=== PATIENT | male | born 1940 | race Caucasian/White ===

== ENCOUNTER 2019-04-27 16:32 | Inpatient (IN) | payer MEDICAID, MEDICARE, OTHER ==
[~2019-04-27] VITALS: Ht 177.8 cm; Wt 68.8 kg
[2019-04-27] MEDS ORDERED: nitroGLYCERIN-Tridil 50MG/D5W 250 ML IV ONE (17:00)
[2019-04-27] MEDS ORDERED: enalaprilat dihydrate 2.5mg/2ml vial IV ONE (17:00)
[2019-04-27 17:15] LABS: BASOPHILS % (AUTO) 0.6 % (0-1); EOSINOPHILS % (AUTO) 0.1 % (0-6); HEMATOCRIT 40.6 % (42.0-52.0); HEMOGLOBIN 13.4 g/dl (14.0-17.9); LYMPHOCYTES % (AUTO) 14.1 % (21-51); MEAN CORPUSCULAR HEMOGLOBIN 28.1 PG (27.0-31.0); MEAN CORPUSCULAR HGB CONC 33.1 g/dL (33.0-36.5); MEAN CORPUSCULAR VOLUME 85.1 FL (78-98); MEAN PLATELET VOLUME 7.9 FL (7.4-10.4); MONOCYTES # (AUTO) 0.5 X10'3 (0-0.9); MONOCYTES % (AUTO) 6.6 % (2-12); NEUTROPHILS # (AUTO) 5.6 X10'3 (1.8-7.7); NEUTROPHILS % (AUTO) 78.6 % (42-75); PLATELET COUNT 201 X10'3 (140-440); RED BLOOD COUNT 4.77 X10'6 (4.70-6.10); RED CELL DISTRIBUTION WIDTH 16.2 % (11.5-14.5); WHITE BLOOD COUNT 7.2 X10'3 (4.5-11.0)
[2019-04-27 17:40] LABS: D-DIMER 0.65 MG/L FEU (0-0.50); PARTIAL THROMBOPLASTIN TIME 27 SECONDS (22-32)
[2019-04-27 17:41] LABS: ALANINE AMINOTRANSFERASE 19 U/L (12-78); ALBUMIN 3.4 G/DL (3.4-5.0); ALBUMIN/GLOBULIN RATIO 1.1 (1.1-1.5); ALKALINE PHOSPHATASE 78 IU/L (46-116); ANION GAP 3 (8-16); ASPARTATE AMINO TRANSFERASE 19 U/L (10-37); BILIRUBIN,TOTAL 0.6 MG/DL (0.1-1.0); BLOOD UREA NITROGEN 14 MG/DL (7-18); BUN/CREATININE RATIO 14.1 (5.4-32.0); CALCIUM 8.3 MG/DL (8.5-10.1); CHLORIDE 106 MMOL/L (99-107); CREATININE 0.99 MG/DL (0.60-1.10); GLUCOSE 201 MG/DL (70-104); POTASSIUM 4.5 MMOL/L (3.5-5.1); SODIUM 144 MMOL/L (135-145); TOTAL CARBON DIOXIDE 35.4 MMOL/L (24-32); TOTAL PROTEIN 6.5 G/DL (6.4-8.2); eGFR 73 ML/MIN
[2019-04-27 18:41] LABS: ABG HCO3 27.3 mmol/L (22.0-26.0); ABG OXYGEN SATURATION 89.7 % (95-98); ABG PCO2 (T) 54.9 mmHg (35.0-45.0); ABG PH (T) 7.311 (7.350-7.450); ABG PO2 (T) 55.4 mmHg (83-108); ALLEN'S TEST POSITIVE; FCOHb 1.1 % (0.5-1.5); FMetHb 0.1 % (0.3-1.12); FO2Hb 88.6 % (94-100); PATIENT TEMPERATURE 36.4; RESPIRATORY RATE 18 b/min; TOTAL HEMOGLOBIN 13.1 G/dl (14.0-17.9)
[2019-04-27 19:00] VITALS: BP 112/92
[2019-04-27] MEDS ORDERED: magnesium 2GM in 50ml NS 50 ML IV PRN (19:40)
[2019-04-27] MEDS ORDERED: magnesium Cl slow-release 64mg tablet PO PRN (19:40)
[2019-04-27] MEDS ORDERED: ondansetron/PF 4mg/2ml inj IV PRN (19:40)
[2019-04-27] MEDS ORDERED: potassium CL 10mEq/100ml bag 100 ML IV PRN ×2 (19:40)
[2019-04-27] MEDS ORDERED: potassium Cl 20 mEq SR tablet PO PRN ×2 (19:40)
[2019-04-27] MEDS ORDERED: magnesium 4gm in 100ml NS 100 ML IV PRN (19:40)
[2019-04-27 20:00] VITALS: BP 112/97
[2019-04-27] MEDS: K and/or MAG REPLACEMENT MC SCH (20:00)
--- NOTE | 2019-04-27 21:00 | NUR ---
[facility], placed on mobile, placed on bipap. Vitals stable, mrsa swab done, 2 RN skin check, and DART complete,.
[2019-04-27 22:00] VITALS: BP 113/65
--- NOTE | 2019-04-27 22:25 | NUR ---
Sent to [facility] PAGER ID: [phone] MESSAGE: ROOM 3012C Vinny Lim: 0 hr trop 0.04 3 hr trop 0.13 elevated D-DIMER 0.65 Please advise Danuta [phone]
[2019-04-27] MEDS: ipratropium/albuterol 3ml nebule NEB SCH (22:47)
[2019-04-27 23:00] VITALS: BP 112/69
--- NOTE | 2019-04-27 23:05 | NUR ---
SENT TO [facility] PAGER ID: [phone] MESSAGE: ROOM 3012C HERB CASTRO: 0 HR 0.04 3 HR 0.18 6 HR 0.24 EKG normal sinus rhythm Please advise Danuta [phone]
[2019-04-28] VITALS (7 sets, daily range): BP systolic 103–134; BP diastolic 50–87
[2019-04-28] MEDS ORDERED: CHOL400T14 PO (02:30)
[2019-04-28] MEDS ORDERED: ASPI81TA52 PO (02:30)
[2019-04-28] MEDS ORDERED: LOSA25TA96 PO (02:30)
[2019-04-28] MEDS ORDERED: BUDE0.5A11 IH (02:30)
[2019-04-28] MEDS ORDERED: OSC500T PO (02:30)
[2019-04-28] MEDS ORDERED: DOCU-148 PO (02:30)
[2019-04-28] MEDS ORDERED: TIOT18CA3 INH (02:30)
[2019-04-28] MEDS ORDERED: SIMV-42 PO (02:30)
[2019-04-28] MEDS ORDERED: CALC500T11 PO (02:30)
[2019-04-28] MEDS ORDERED: ALEN70TA60 PO ×2 (02:30→02:41)
[2019-04-28] MEDS: ipratropium/albuterol 3ml nebule NEB SCH ×5 (02:33→20:11)
[2019-04-28] MEDS ORDERED: SIMV10TA2 PO (02:41)
[2019-04-28 05:08] LABS: BASOPHILS % (AUTO) 0.2 % (0-1); EOSINOPHILS % (AUTO) 0.1 % (0-6); HEMATOCRIT 36.2 % (42.0-52.0); HEMOGLOBIN 12.1 g/dl (14.0-17.9); LYMPHOCYTES # (AUTO) 0.4 X10'3 (1.1-4.8); LYMPHOCYTES % (AUTO) 9.9 % (21-51); MEAN CORPUSCULAR HEMOGLOBIN 27.8 PG (27.0-31.0); MEAN CORPUSCULAR HGB CONC 33.3 g/dL (33.0-36.5); MEAN CORPUSCULAR VOLUME 83.4 FL (78-98); MEAN PLATELET VOLUME 8.4 FL (7.4-10.4); MONOCYTES # (AUTO) 0.4 X10'3 (0-0.9); MONOCYTES % (AUTO) 10.2 % (2-12); NEUTROPHILS # (AUTO) 3.3 X10'3 (1.8-7.7); NEUTROPHILS % (AUTO) 79.6 % (42-75); PLATELET COUNT 162 X10'3 (140-440); RED BLOOD COUNT 4.34 X10'6 (4.70-6.10); RED CELL DISTRIBUTION WIDTH 15.8 % (11.5-14.5); WHITE BLOOD COUNT 4.1 X10'3 (4.5-11.0)
[2019-04-28 05:13] LABS: ANION GAP 0 (8-16); BLOOD UREA NITROGEN 14 MG/DL (7-18); BUN/CREATININE RATIO 16.7 (5.4-32.0); CALCIUM 8.3 MG/DL (8.5-10.1); CHLORIDE 108 MMOL/L (99-107); CREATININE 0.84 MG/DL (0.60-1.10); GLUCOSE 114 MG/DL (70-104); MAGNESIUM 2.1 MG/DL (1.5-2.4); POTASSIUM 4.5 MMOL/L (3.5-5.1); SODIUM 144 MMOL/L (135-145); TOTAL CARBON DIOXIDE 35.8 MMOL/L (24-32); eGFR 88 ML/MIN
--- NOTE | 2019-04-28 05:35 | NUR ---
Vince is aware of all of patient's troponins, no further orders have been made at this time.
--- NOTE | 2019-04-28 06:21 | NUR ---
Patient in room PCU 3012. I have received report from RICK Pena and had the opportunity to ask questions and assume patient care.
[2019-04-28] MEDS: K and/or MAG REPLACEMENT MC SCH ×2 (08:00→19:46)
[2019-04-28] MEDS: CefTRIAXone/D5W-Rocephin 1gm 50 ML IV SCH (08:31)
[2019-04-28] MEDS: methylPREDNISolone sod succ 125mg/2ml vial IV SCH ×2 (08:32→08:44)
[2019-04-28] MEDS: pantoprazole 40mg Tablet.DR PO SCH ×2 (08:33→08:45)
[2019-04-28] MEDS: furosemide 20 MG/2 ML vial IV SCH ×2 (08:33→08:42)
[2019-04-28] MEDS: heparin, porcine 5000 units/ml vial SQ SCH ×2 (08:33→08:44)
[2019-04-28] MEDS: azithromycin/NS 500mg/250ml 250 ML IV SCH (11:26)
[2019-04-28] MEDS ORDERED: non-formulary drug (Alendronate Sodium* (Fosamax*) 70 MG) PO SCH (11:55)
--- NOTE | 2019-04-28 18:36 | NUR ---
Problems reprioritized. Patient report given, questions answered & plan of care reviewed with RICK Najera.
[2019-04-28] MEDS: losartan 25mg tablet PO SCH (20:48)
[2019-04-28] MEDS: aspirin 81mg tablet.DR PO SCH (20:49)
[2019-04-28] MEDS: calcium carbonate 500mg tablet PO SCH (20:49)
--- NOTE | 2019-04-28 23:08 | NUR ---
patient requested to leave fieldstart in. patient is aware of the risks for leaving it in
[2019-04-29] MEDS: ipratropium/albuterol 3ml nebule NEB SCH ×7 (00:41→23:05)
[2019-04-29 02:30] VITALS: BP 123/64
[2019-04-29 05:59] LABS: BASOPHILS % (AUTO) 0.2 % (0-1); EOSINOPHILS % (AUTO) 0 % (0-6); HEMOGLOBIN 12.1 g/dl (14.0-17.9); LYMPHOCYTES # (AUTO) 0.3 X10'3 (1.1-4.8); LYMPHOCYTES % (AUTO) 5.8 % (21-51); MEAN CORPUSCULAR HEMOGLOBIN 28.2 PG (27.0-31.0); MEAN CORPUSCULAR HGB CONC 33.7 g/dL (33.0-36.5); MEAN CORPUSCULAR VOLUME 83.8 FL (78-98); MEAN PLATELET VOLUME 8.1 FL (7.4-10.4); MONOCYTES # (AUTO) 0.5 X10'3 (0-0.9); NEUTROPHILS # (AUTO) 3.7 X10'3 (1.8-7.7); PLATELET COUNT 166 X10'3 (140-440); RED BLOOD COUNT 4.29 X10'6 (4.70-6.10); RED CELL DISTRIBUTION WIDTH 16.1 % (11.5-14.5); WHITE BLOOD COUNT 4.4 X10'3 (4.5-11.0)
[2019-04-29 06:00] VITALS: BP 118/60
[2019-04-29 06:14] LABS: ALBUMIN 3.1 G/DL (3.4-5.0); ANION GAP 2 (8-16); BLOOD UREA NITROGEN 15 MG/DL (7-18); BUN/CREATININE RATIO 17.4 (5.4-32.0); CHLORIDE 106 MMOL/L (99-107); CREATININE 0.86 MG/DL (0.60-1.10); GLUCOSE 116 MG/DL (70-104); MAGNESIUM 2.1 MG/DL (1.5-2.4); POTASSIUM 4.3 MMOL/L (3.5-5.1); SODIUM 142 MMOL/L (135-145); TOTAL CARBON DIOXIDE 34.4 MMOL/L (24-32); eGFR 86 ML/MIN
--- NOTE | 2019-04-29 06:19 | NUR ---
Problems reprioritized. Patient report given, questions answered & plan of care reviewed with Austin CABRERA.
--- NOTE | 2019-04-29 06:36 | NUR ---
Patient in room PCU 3012. I have received report from RICK Najera and had the opportunity to ask questions and assume patient care.
[2019-04-29] MEDS: K and/or MAG REPLACEMENT MC SCH ×2 (07:00→20:00)
[2019-04-29] MEDS: pantoprazole 40mg Tablet.DR PO SCH (07:41)
[2019-04-29] MEDS: calcium carbonate 500mg tablet PO SCH ×2 (07:41→21:04)
[2019-04-29] MEDS: ergocalciferol (Vitamin D) 50,000 unit capsule PO SCH (07:41)
[2019-04-29] MEDS: heparin, porcine 5000 units/ml vial SQ SCH ×2 (07:44→21:05)
[2019-04-29] MEDS: furosemide 20 MG/2 ML vial IV SCH (07:49)
[2019-04-29] MEDS: methylPREDNISolone sod succ 125mg/2ml vial IV SCH ×2 (07:49→21:04)
[2019-04-29] MEDS: CefTRIAXone/D5W-Rocephin 1gm 50 ML IV SCH (07:49)
[2019-04-29] MEDS ORDERED: atorvastatin 10mg tablet PO SCH (08:00)
[2019-04-29] MEDS: azithromycin/NS 500mg/250ml 250 ML IV SCH (08:34)
[2019-04-29] MEDS: atorvastatin 10mg tablet PO SCH ×2 (09:15→21:02)
[2019-04-29] MEDS: lisinopril 2.5mg tablet PO SCH (10:10)
--- NOTE | 2019-04-29 10:39 | NUR ---
Called Dr Clarke about patient's SOB. Included patient's oxygen sats which were 88-96% and his tachypnea. No new orders, said it patient's breathing will take a few days to improve. Let patient and his daughter know what Dr Clarke said. Addendum: 04/29/19 at 1059 by Austin Tuttle RN I let them know I paged RT to see about getting his 11am breathing tx at 10am.
--- NOTE | 2019-04-29 10:54 | NUR ---
Daughter concerned she feels patient's hand are blue. Upon assessment his pulses are normal and capillary refills is under 3 seconds. Educated Daughter that he is getting blood flow to his hands and his oxygen levels are at 88% or above.
[2019-04-29 11:00] VITALS: BP 102/61
--- NOTE | 2019-04-29 12:28 | NUR ---
PAGER ID: [phone] MESSAGE: Bernadine Jonesith Carina, Room: [facility]. Chest X-ray resulted for Pt. -Austin U #[id number]. Dr. Clarke paged concerning Pt's chest X-ray
--- NOTE | 2019-04-29 12:36 | NUR ---
PAGER ID: [phone] MESSAGE: 3012C Vinny Lim: Cxray shows worsening of RLL infiltrates. RICK Avila Ext [phone]
[2019-04-29 15:00] VITALS: BP 126/72
[2019-04-29] MEDS: vancomycin/NS 1 GM ADD-VANTAGE 250 ML IV SCH (15:42)
--- NOTE | 2019-04-29 16:49 | NUR ---
Problems reprioritized. Patient report given, questions answered & plan of care reviewed with RICK Harrison.
--- NOTE | 2019-04-29 16:50 | NUR ---
Patient in room PCU 3012. I have received report from RICK Avila and had the opportunity to ask questions and assume patient care.
[2019-04-29] MEDS: piperacillin/tazo 3.375gm/50ml 50 ML IV SCH ×2 (17:33→23:40)
[2019-04-29 18:00] VITALS: BP_SYST 129; BP_SYST 131; BP_DIAS 75
--- NOTE | 2019-04-29 18:15 | NUR ---
Problems reprioritized. Patient report given, questions answered & plan of care reviewed with RICK Jane.
[2019-04-29] MEDS: losartan 25mg tablet PO SCH (20:56)
[2019-04-29] MEDS: carVEDilol 3.125mg tablet PO SCH (21:00)
[2019-04-29] MEDS: aspirin 81mg tablet.DR PO SCH (21:03)
--- NOTE | 2019-04-29 21:49 | NUR ---
Page sent to Dr. Conn because patient c/o worsening SOB and has course crackles throughout with a worsening of R sided pleural effusion on CXR today. Patient's BP currently 118/60 and HR 101. ordered for a one time dose IVP Lasix 40mg and to let on-coming day time provider address increasing his daily dose.
[2019-04-29] MEDS ORDERED: furosemide 40mg/4ml inj IV ONE (21:50)
[2019-04-29 23:00] VITALS: BP 131/75
--- NOTE | 2019-04-29 23:57 | NUR ---
Sent a page to Dr. Conn because patient was c/o of a constant need to void and was only producing about 50-75mL urine when he was able to void. Bladder scan showed over 550mL of urine in the bladder and bladder distention was noted. Addendum: 04/30/19 at 0052 by Lucinda Warren RN Received order to straight cath patient X1
[2019-04-30] MEDS ORDERED: VANCOMYCIN LEVEL IV ONE (01:30)
[2019-04-30] MEDS: vancomycin/NS 1 GM ADD-VANTAGE 250 ML IV SCH ×2 (02:34→14:06)
[2019-04-30 03:00] VITALS: BP 112/74
[2019-04-30] MEDS: ipratropium/albuterol 3ml nebule NEB SCH ×6 (03:20→23:14)
--- NOTE | 2019-04-30 05:42 | NUR ---
Student Medication Administration: For this medication-pass time frame, all medication were reviewed, dispensed, administered and documented per hospital policy by Rama FARRIS.
[2019-04-30 06:00] VITALS: BP 129/84
--- NOTE | 2019-04-30 06:33 | NUR ---
Problems reprioritized. Patient report given, questions answered & plan of care reviewed with Cynthia CABRERA.
[2019-04-30 06:34] LABS: BASOPHILS % (AUTO) 0.2 % (0-1); EOSINOPHILS % (AUTO) 0 % (0-6); HEMATOCRIT 39.1 % (42.0-52.0); HEMOGLOBIN 12.9 g/dl (14.0-17.9); LYMPHOCYTES # (AUTO) 0.3 X10'3 (1.1-4.8); MEAN CORPUSCULAR HEMOGLOBIN 27.8 PG (27.0-31.0); MEAN CORPUSCULAR HGB CONC 33.1 g/dL (33.0-36.5); MEAN PLATELET VOLUME 8.3 FL (7.4-10.4); MONOCYTES # (AUTO) 0.3 X10'3 (0-0.9); NEUTROPHILS # (AUTO) 4.8 X10'3 (1.8-7.7); NEUTROPHILS % (AUTO) 88.8 % (42-75); PLATELET COUNT 189 X10'3 (140-440); RED BLOOD COUNT 4.65 X10'6 (4.70-6.10); RED CELL DISTRIBUTION WIDTH 15.9 % (11.5-14.5); WHITE BLOOD COUNT 5.4 X10'3 (4.5-11.0)
[2019-04-30 06:50] LABS: ALBUMIN 3.3 G/DL (3.4-5.0); ANION GAP 2 (8-16); BLOOD UREA NITROGEN 21 MG/DL (7-18); BUN/CREATININE RATIO 20.4 (5.4-32.0); CALCIUM 9.7 MG/DL (8.5-10.1); CHLORIDE 101 MMOL/L (99-107); CREATININE 1.03 MG/DL (0.60-1.10); GLUCOSE 124 MG/DL (70-104); MAGNESIUM 2.1 MG/DL (1.5-2.4); POTASSIUM 4.7 MMOL/L (3.5-5.1); SODIUM 142 MMOL/L (135-145); eGFR 70 ML/MIN
[2019-04-30] MEDS: K and/or MAG REPLACEMENT MC SCH ×2 (08:00→19:22)
[2019-04-30] MEDS: carVEDilol 3.125mg tablet PO SCH ×2 (08:04→20:37)
[2019-04-30] MEDS: calcium carbonate 500mg tablet PO SCH ×2 (08:04→20:37)
[2019-04-30] MEDS: pantoprazole 40mg Tablet.DR PO SCH (08:04)
[2019-04-30] MEDS: lisinopril 2.5mg tablet PO SCH (08:05)
[2019-04-30] MEDS: heparin, porcine 5000 units/ml vial SQ SCH ×2 (08:05→20:46)
[2019-04-30] MEDS: furosemide 20 MG/2 ML vial IV SCH ×3 (08:06→20:46)
[2019-04-30] MEDS: methylPREDNISolone sod succ 125mg/2ml vial IV SCH ×2 (08:06→20:46)
[2019-04-30] MEDS: piperacillin/tazo 3.375gm/50ml 50 ML IV SCH ×2 (08:06→16:56)
[2019-04-30 11:00] VITALS: BP 137/87
[2019-04-30] MEDS ORDERED: LIDOcaine 2% 10ml TOPICAL JELLY (Urojet) MM ONE (11:05)
[2019-04-30] MEDS ORDERED: furosemide 40mg/4ml inj IV ONE (12:40)
--- NOTE | 2019-04-30 13:00 | NUR ---
Patient in room PCU 3012. I have received report from RICK Marie and had the opportunity to ask questions and assume patient care. Patient awake in bed and in no acute distress. at the bedside.
[2019-04-30 15:00] VITALS: BP 130/91
[2019-04-30 18:00] VITALS: BP 111/45
--- NOTE | 2019-04-30 18:34 | NUR ---
Problems reprioritized. Patient report given, questions answered & plan of care reviewed with RICK Jane. Patient stable at transfer of care.
[2019-04-30] MEDS: tamsulosin 0.4mg capsule PO SCH (20:37)
[2019-04-30] MEDS: atorvastatin 10mg tablet PO SCH (20:43)
[2019-04-30] MEDS: losartan 25mg tablet PO SCH (20:43)
[2019-04-30] MEDS: aspirin 81mg tablet.DR PO SCH (20:45)
[2019-04-30 22:00] VITALS: BP 118/68
[2019-05-01] MEDS: piperacillin/tazo 3.375gm/50ml 50 ML IV SCH ×3 (00:54→17:06)
[2019-05-01] MEDS ORDERED: VANCOMYCIN LEVEL IV ONE (01:30)
[2019-05-01 01:49] LABS: BASOPHILS % (AUTO) 0 % (0-1); EOSINOPHILS % (AUTO) 0 % (0-6); HEMATOCRIT 41.4 % (42.0-52.0); HEMOGLOBIN 14.1 g/dl (14.0-17.9); LYMPHOCYTES # (AUTO) 0.2 X10'3 (1.1-4.8); LYMPHOCYTES % (AUTO) 3.5 % (21-51); MEAN CORPUSCULAR HEMOGLOBIN 28.2 PG (27.0-31.0); MEAN CORPUSCULAR HGB CONC 34.1 g/dL (33.0-36.5); MEAN CORPUSCULAR VOLUME 82.7 FL (78-98); MEAN PLATELET VOLUME 7.9 FL (7.4-10.4); MONOCYTES # (AUTO) 0.4 X10'3 (0-0.9); MONOCYTES % (AUTO) 5.9 % (2-12); NEUTROPHILS # (AUTO) 6.2 X10'3 (1.8-7.7); NEUTROPHILS % (AUTO) 90.6 % (42-75); PLATELET COUNT 207 X10'3 (140-440); RED CELL DISTRIBUTION WIDTH 16.1 % (11.5-14.5); WHITE BLOOD COUNT 6.9 X10'3 (4.5-11.0)
[2019-05-01 02:00] VITALS: BP 113/66
[2019-05-01 02:04] LABS: ALBUMIN 3.4 G/DL (3.4-5.0); ANION GAP -1 (8-16); BLOOD UREA NITROGEN 30 MG/DL (7-18); BUN/CREATININE RATIO 25.2 (5.4-32.0); CALCIUM 9.6 MG/DL (8.5-10.1); CHLORIDE 98 MMOL/L (99-107); CREATININE 1.19 MG/DL (0.60-1.10); GLUCOSE 141 MG/DL (70-104); MAGNESIUM 2.1 MG/DL (1.5-2.4); POTASSIUM 3.9 MMOL/L (3.5-5.1); SODIUM 141 MMOL/L (135-145); VANCOMYCIN,TROUGH 18.7 UG/ML (6.0-14.0); eGFR 59 ML/MIN
[2019-05-01 02:09] LABS: TOTAL CARBON DIOXIDE 43.7 MMOL/L (24-32)
[2019-05-01] MEDS: vancomycin/NS 1 GM ADD-VANTAGE 250 ML IV SCH ×2 (02:17→13:29)
--- NOTE | 2019-05-01 02:19 | NUR ---
Notified Dr. Conn of elevated venous CO2 level of 43.7 which has trended up for the past 2 morning draws. stated that it is not too elevated so unless patient begins to show signs of elevated CO2 like increased confusion then just to continue to monitor the patient. No changes in mentation noted. Patient has not been on bipap most of the night at his request. Will continue to monitor and place patient on bipap as needed
[2019-05-01] MEDS: ipratropium/albuterol 3ml nebule NEB SCH ×6 (03:40→23:41)
[2019-05-01 06:00] VITALS: BP 114/79
--- NOTE | 2019-05-01 06:08 | NUR ---
Student Medication Administration: For this medication-pass time frame, all medication were reviewed, dispensed, administered and documented per hospital policy by Rama FARRIS. Student documentation: I have reviewed and agree with all interventions, assessments performed and documented by Rama FARRIS.
--- NOTE | 2019-05-01 06:19 | NUR ---
Problems reprioritized. Patient report given, questions answered & plan of care reviewed with Durga CABRERA.
--- NOTE | 2019-05-01 06:27 | NUR ---
Patient in room PCU 3012. I have received report from Lucinda CABRERA and had the opportunity to ask questions and assume patient care.
[2019-05-01] MEDS: heparin, porcine 5000 units/ml vial SQ SCH ×2 (07:41→20:00)
[2019-05-01] MEDS: lisinopril 2.5mg tablet PO SCH (07:41)
[2019-05-01] MEDS: carVEDilol 3.125mg tablet PO SCH ×2 (07:41→22:06)
[2019-05-01] MEDS: pantoprazole 40mg Tablet.DR PO SCH (07:41)
[2019-05-01] MEDS: calcium carbonate 500mg tablet PO SCH ×2 (07:41→22:07)
[2019-05-01] MEDS: methylPREDNISolone sod succ 125mg/2ml vial IV SCH ×2 (07:42→22:05)
[2019-05-01] MEDS: furosemide 20 MG/2 ML vial IV SCH ×2 (07:42→22:01)
[2019-05-01] MEDS: K and/or MAG REPLACEMENT MC SCH (08:00)
[2019-05-01 11:00] VITALS: BP 114/79
--- NOTE | 2019-05-01 11:50 | NUR ---
received orders to get ABG for SOB per Dr. Clarke
--- NOTE | 2019-05-01 13:05 | NUR ---
Per insurance clerk pt reports poor appetite and difficulty chewing. Pt and SO seen at bedside. Pt reports low appetite secondary to not feeling well. Pt currently on regular diet documented with 0-25% PO intake not meeting nutrient needs despite SO encouraging PO intake and assisting with meals. Pt reports difficulty chewing and swallowing, RD consulted ST for BSS. In the mean time, pt agrees to soft to chew foods, d/w dietary. LBM 2/3, pt reports no BM since admit. Pt currently not on any bowel care. Pt denies prunes/prune juice however agrees to power pudding with dinner tonight to assist with BM, d/w dietary. RD encouraged PO intake and provided pt with alternative menu to provide additional food options however pt declines any preferences at this time. SO reports pt drank 1/4 of an Ensure the other day and would like for pt to receive them during admission. D/w RN recommendation for Ensure Enlive TID as well as routine bowel care and pt reports of difficulty chewing/swallowing. Pt admit with acute on chronic respiratory failure and RLL PNA. Pt with CHF with EF 30% per MD notes. Pt provided with RD contact information. Will continue to follow closely. Recommendations: 1) Continue regular diet in view of poor PO intake 2) Soft to chew food; further texture modification per ST pending BSS 3) Chocolate Ensure Enlive TID, d/w RN 4) Encourage PO intake 5) Routine bowel care in view of constipation with no BM x 5 days, d/w RN 6) Wt per rx Addendum: 05/01/19 at [address] Amended: Links added.
--- NOTE | 2019-05-01 14:00 | NUR ---
PAGER ID: [phone] MESSAGE: [id number] Vinny Cantu: Pt is complaining of chest pain, we are getting EKG per protocol, where can i meet you for it to be read? thanks rosa [phone]
--- NOTE | 2019-05-01 14:06 | NUR ---
Patient is complaining of chest pain, Stat EKG is being completed per protocol, dr. khan notified received orders to get a troponin and cxr per dr. khan.
[2019-05-01 15:00] VITALS: BP 97/50
--- NOTE | 2019-05-01 15:31 | NUR ---
PAGER ID: [phone] MESSAGE: [id number] Vinny Cantu: Critical troponin of 1.44 do you want to continue troponin series. Thanks rosa [phone]
--- NOTE | 2019-05-01 15:43 | NUR ---
Dr. Clarke aware of elevated troponin, no new orders at this time.
[2019-05-01] MEDS ORDERED: nitroGLYCERIN 1gm ointment UD TP ONE (15:50)
--- NOTE | 2019-05-01 15:55 | NUR ---
Dr. Clarke requests to contact dr. san to have him consult with patient.
[2019-05-01 16:21] LABS: ABG HCO3 38.4 mmol/L (22.0-26.0); ABG OXYGEN SATURATION 87.3 % (95-98); ABG PCO2 (T) 56.2 mmHg (35.0-45.0); ABG PH (T) 7.452 (7.350-7.450); ABG PO2 (T) 51.7 mmHg (83-108); FCOHb 0.6 % (0.5-1.5); FMetHb 0.2 % (0.3-1.12); FO2Hb 86.6 % (94-100); TOTAL HEMOGLOBIN 14.3 G/dl (14.0-17.9)
--- NOTE | 2019-05-01 17:09 | NUR ---
UNABLE TO GIVE NITRO PATCH D/T PATIENT DECREASED BP OF 97/50, PT ALSO DENIES CHEST PAIN AT THIS TIME.
--- NOTE | 2019-05-01 17:43 | NUR ---
PAGER ID: [phone] MESSAGE: [id number] Vinny Cantu: MONICA DODGE results in, HCO3 is 38.4 previously 27.3. thanks rosa
[2019-05-01] MEDS: lactose-reduced food (Ensure High Protein) 237ml bottle PO SCH (18:00)
--- NOTE | 2019-05-01 18:33 | NUR ---
Problems reprioritized. Patient report given, questions answered & plan of care reviewed with David CABRERA.
--- NOTE | 2019-05-01 19:00 | NUR ---
called dr walker about high troponin, He ordered the patient to be put on a heparin drip.
[2019-05-01] MEDS ORDERED: heparin 10,000 units/1 ML INJ IV PRN (19:55)
[2019-05-01] MEDS ORDERED: heparin 10,000 units/1 ML INJ IV ONE (19:55)
[2019-05-01] MEDS: losartan 25mg tablet PO SCH (21:00)
[2019-05-01 21:13] LABS: PARTIAL THROMBOPLASTIN TIME 25 SECONDS (22-32)
[2019-05-01] MEDS: heparin 25,000 UNIT/250ml bag 250 ML IV SCH (21:34)
[2019-05-01 22:00] VITALS: BP 115/69
[2019-05-01] MEDS: tamsulosin 0.4mg capsule PO SCH (22:08)
[2019-05-01] MEDS: atorvastatin 10mg tablet PO SCH (22:08)
[2019-05-01] MEDS: aspirin 81mg tablet.DR PO SCH (22:11)
--- NOTE | 2019-05-01 22:31 | NUR ---
Dr khan ordered to continue the troponin monitoring and wanted to put him on weight based lovenox. informed her that the patient was already on heparin, she said that was good enough.
[2019-05-02] VITALS (7 sets, daily range): BP systolic 89–111; BP diastolic 43–81
[2019-05-02] MEDS: piperacillin/tazo 3.375gm/50ml 50 ML IV SCH ×4 (00:21→23:45)
[2019-05-02] MEDS: ipratropium/albuterol 3ml nebule NEB SCH ×6 (03:10→23:30)
[2019-05-02 04:05] LABS: ALBUMIN 3.1 G/DL (3.4-5.0); BLOOD UREA NITROGEN 41 MG/DL (7-18); BUN/CREATININE RATIO 34.5 (5.4-32.0); CALCIUM 9.4 MG/DL (8.5-10.1); CHLORIDE 99 MMOL/L (99-107); CREATININE 1.19 MG/DL (0.60-1.10); GLUCOSE 151 MG/DL (70-104); MAGNESIUM 2.1 MG/DL (1.5-2.4); POTASSIUM 4.2 MMOL/L (3.5-5.1); SODIUM 142 MMOL/L (135-145); eGFR 59 ML/MIN
[2019-05-02 04:14] LABS: ANION GAP -3 (8-16)
[2019-05-02 04:16] LABS: TOTAL CARBON DIOXIDE 45.7 MMOL/L (24-32)
[2019-05-02 04:17] LABS: TROPONIN I 1.58 NG/ML (0.0-0.05)
[2019-05-02] MEDS: vancomycin/NS 1 GM ADD-VANTAGE 250 ML IV SCH ×2 (05:12→13:56)
--- NOTE | 2019-05-02 05:41 | NUR ---
There was a critical CO2 on the chem panel, trop was also critical but trending down. Dr Snowden was notified, he said he wanted me to notify DR. Espino, I wasn't sure if he had officially consulted on the patient but aaron wanted me to try anyway. Dr Espino called back annoyed and said it wasn't emergent and he shoudn't have been called. day shift nurse will Follow up with morning hospitalist
[2019-05-02 06:24] LABS: BASOPHILS % (AUTO) 0.1 % (0-1); EOSINOPHILS % (AUTO) 0 % (0-6); HEMATOCRIT 39.5 % (42.0-52.0); HEMOGLOBIN 13.5 g/dl (14.0-17.9); LYMPHOCYTES # (AUTO) 0.3 X10'3 (1.1-4.8); LYMPHOCYTES % (AUTO) 4.6 % (21-51); MEAN CORPUSCULAR HEMOGLOBIN 28.3 PG (27.0-31.0); MEAN CORPUSCULAR HGB CONC 34.2 g/dL (33.0-36.5); MEAN CORPUSCULAR VOLUME 82.9 FL (78-98); MEAN PLATELET VOLUME 8.2 FL (7.4-10.4); MONOCYTES # (AUTO) 0.6 X10'3 (0-0.9); NEUTROPHILS % (AUTO) 87.3 % (42-75); PLATELET COUNT 194 X10'3 (140-440); RED BLOOD COUNT 4.77 X10'6 (4.70-6.10); RED CELL DISTRIBUTION WIDTH 15.9 % (11.5-14.5); WHITE BLOOD COUNT 6.9 X10'3 (4.5-11.0)
--- NOTE | 2019-05-02 07:13 | NUR ---
Patient in room PCU 3012. I have received report from RICK ZAMAN and had the opportunity to ask questions and assume patient care. PT RESTING COMFORTABLY IN BED WITH AT BEDSIDE. PT ON NASAL CANULA. HEPARIN GTT HAD TURNED OFF. RESTARTED AT 800 BY JOSE RN AND PTT ORDERED TO RECHECK.
[2019-05-02] MEDS: lisinopril 2.5mg tablet PO SCH (08:00)
[2019-05-02] MEDS: heparin, porcine 5000 units/ml vial SQ SCH ×2 (08:00→20:10)
[2019-05-02] MEDS: furosemide 20 MG/2 ML vial IV SCH (08:00)
[2019-05-02] MEDS: K and/or MAG REPLACEMENT MC SCH ×2 (08:00→20:00)
[2019-05-02] MEDS: carVEDilol 3.125mg tablet PO SCH ×2 (08:00→20:00)
[2019-05-02] MEDS: heparin 25,000 UNIT/250ml bag 250 ML IV SCH (08:42)
[2019-05-02] MEDS: calcium carbonate 500mg tablet PO SCH ×2 (08:43→20:20)
[2019-05-02] MEDS: methylPREDNISolone sod succ 125mg/2ml vial IV SCH ×2 (08:43→20:10)
[2019-05-02] MEDS: pantoprazole 40mg Tablet.DR PO SCH (08:44)
[2019-05-02] MEDS: lactose-reduced food (Ensure High Protein) 237ml bottle PO SCH ×3 (08:51→18:00)
--- NOTE | 2019-05-02 09:11 | NUR ---
SPOKE WITH DR. RIOS ANSWERING SERVICE TO CALL DR. BRAY. DR. BRAY IN TO SEE PT NOTIFIED PT IS REFUSING BIPAP, AWARE OF LOW BP'S. PER DR. BRAY GIVE LASIX, HOLD LISINIPRIL AND CARVEDILOL. MD AWARE BP 101/71. ABG AND CXR ORDERED PER ORDERS
[2019-05-02] MEDS ORDERED: furosemide 40mg/4ml inj IV ONE (09:25)
--- NOTE | 2019-05-02 09:27 | NUR ---
dr. khan notified of troponin 1.28 no new orders received. current bp 94/[address] khan give a one time dose lasix 20 iv x1
--- NOTE | 2019-05-02 09:28 | NUR ---
CRITICAL LAB VALUE TAKEN FROM LAB, REPORTED TO PRIMARY RN.
--- NOTE | 2019-05-02 09:48 | NUR ---
DR. BRAY NOTIFIED OF ABG. SHE ALSO REVIEWED CXR. SHE SAYS PT IS DOING BETTER TODAY AND IT IS ALRIGHT FOR LIBAN Addendum: 05/02/19 at 0949 by Waleska Lozano RN HIM TO BE OFF BIPAP
--- NOTE | 2019-05-02 11:32 | NUR ---
SPOKE TO DR. RIOS D/C HEPARIN GTT, PLAVIX 150 NOW, 75 DAILY AFTER, LOVENOX 40SQ IN 2 HRS, CHANGE LASIX TO 20PO BID. PT NOT A CANDIDATE FRO CATH. DR. RIOS RECOMMENDS PT BE A DNR. DR. BRAY AWARE OF CHANGES. PT ALSO FEELING DIZZY BP 86/48. FEET ELEVATED. DR. BRAY AWARE. AVOID FLUID BOLUS PER MD.
[2019-05-02] MEDS ORDERED: clopidogrel 75mg tablet PO ONE (11:47)
[2019-05-02] MEDS: enoxaparin 40mg/0.4ml syringe SUBCUT SCH (13:56)
--- NOTE | 2019-05-02 18:50 | NUR ---
Problems reprioritized. Patient report given, questions answered & plan of care reviewed with RICK JOY.
--- NOTE | 2019-05-02 19:11 | NUR ---
Problems reprioritized. Patient report given, questions answered & plan of care reviewed with RICK Galeano.
[2019-05-02] MEDS: aspirin 81mg tablet.DR PO SCH (20:16)
[2019-05-02] MEDS: tamsulosin 0.4mg capsule PO SCH (20:17)
[2019-05-02] MEDS: atorvastatin 10mg tablet PO SCH (20:20)
[2019-05-02] MEDS: furosemide 20MG tablet PO SCH (20:21)
[2019-05-02] MEDS: losartan 25mg tablet PO SCH (21:00)
[2019-05-02] MEDS: acetaminophen 325mg tablet PO PRN (23:45)
[2019-05-03] VITALS (7 sets, daily range): BP systolic 88–138; BP diastolic 55–73
[2019-05-03] MEDS: vancomycin/NS 1 GM ADD-VANTAGE 250 ML IV SCH (02:33)
[2019-05-03] MEDS: ipratropium/albuterol 3ml nebule NEB SCH ×6 (03:39→23:49)
--- NOTE | 2019-05-03 06:19 | NUR ---
Problems reprioritized. Patient report given, questions answered & plan of care reviewed with RICK Garg.
--- NOTE | 2019-05-03 06:30 | NUR ---
Patient in room PCU 3012. I have received report from Danuta CABRERA and had the opportunity to ask questions and assume patient care. Patient asleep in bed and resting comfortably. Bi-pap at 30% FiO2. Spouse present bedside.
[2019-05-03] MEDS: carVEDilol 3.125mg tablet PO SCH ×3 (08:00→19:43)
[2019-05-03] MEDS: heparin, porcine 5000 units/ml vial SQ SCH ×2 (08:00→20:00)
[2019-05-03] MEDS: furosemide 20MG tablet PO SCH ×2 (08:00→11:16)
[2019-05-03] MEDS: lactose-reduced food (Ensure High Protein) 237ml bottle PO SCH ×3 (08:00→18:00)
[2019-05-03] MEDS: K and/or MAG REPLACEMENT MC SCH ×2 (08:00→20:00)
[2019-05-03] MEDS: lisinopril 2.5mg tablet PO SCH (08:00)
[2019-05-03] MEDS: calcium carbonate 500mg tablet PO SCH ×2 (08:25→19:38)
[2019-05-03] MEDS: pantoprazole 40mg Tablet.DR PO SCH (08:25)
[2019-05-03] MEDS: clopidogrel 75mg tablet PO SCH (08:27)
[2019-05-03] MEDS: methylPREDNISolone sod succ 125mg/2ml vial IV SCH (08:27)
[2019-05-03] MEDS: piperacillin/tazo 3.375gm/50ml 50 ML IV SCH (08:28)
[2019-05-03] MEDS: enoxaparin 40mg/0.4ml syringe SUBCUT SCH (08:57)
[2019-05-03 09:35] LABS: ABG BASE EXCESS 15.5 mmol/L (-2.0-3.0); ABG HCO3 42.3 mmol/L (22.0-26.0); ABG OXYGEN SATURATION 86.1 % (95-98); ABG PCO2 (T) 60.3 mmHg (35.0-45.0); ABG PH (T) 7.464 (7.350-7.450); ALLEN'S TEST POSITIVE; FCOHb 0.3 % (0.5-1.5); FLOW 3 L/min; FMetHb 0.3 % (0.3-1.12); FO2Hb 85.6 % (94-100); TOTAL HEMOGLOBIN 14.1 G/dl (14.0-17.9)
[2019-05-03] MEDS: CefTRIAXone 2gm/D5W 50ml 50 ML IV SCH (09:37)
[2019-05-03] MEDS ORDERED: bisacodyl 10mg suppository rectal RC PRN (10:20)
[2019-05-03] MEDS ORDERED: magnesium hydroxide 30ml (MOM) UD suspension PO ONE (10:30)
[2019-05-03] MEDS: docusate sod 100mg capsule PO SCH ×2 (10:58→20:00)
[2019-05-03] MEDS ORDERED: furosemide 20MG tablet PO SCH (12:10)
--- NOTE | 2019-05-03 13:24 | NUR ---
Paged Dr. Clarke PAGER ID: [phone] MESSAGE: RE: Vinny Lim [id number]. Patient already received 20 mg PO Lasix this morning. Do you want new order with adjusted frequency to start tomorrow? Thank you, Britany [phone]
--- NOTE | 2019-05-03 16:54 | NUR ---
Reassessment: Pt PO fluctuates 25-50% avg regular/mechanical soft grind all meals. LBM 2/3 likely impacting PO; receiving colace routinely. RD d/w RN regarding additional bowel care per MD approval. Pt CO2 45.7 yesterday and noted to have refused bipap yesterday as well. Ensure High Protein TIDWM added per MD to meals. Will monitor for ONS acceptance and additional bowel care needs. Recommendations: 1) Continue regular/mechanical soft/grind diet per OCCUPATIONAL THERAPY TECHNICIAN BSS recs 2) Chocolate High Protein TID per MD 3) Encourage PO intake 4) Routine bowel care in view of constipation with no BM x 7days, d/w RN 5) Wt per rx Addendum: 05/03/19 at [address] Amended: Links added.
--- NOTE | 2019-05-03 18:03 | NUR ---
Student documentation: I have reviewed and agree with all interventions, assessments performed and documented by Roxy CARRION Student Medication Administration: For this medication-pass time frame, all medication were reviewed, dispensed, administered and documented per hospital policy by Roxy CARRION.
--- NOTE | 2019-05-03 18:19 | NUR ---
Problems reprioritized. Patient report given, questions answered & plan of care reviewed with Danuta CABRERA. Patient stable at transfer of care.
[2019-05-03] MEDS: methylPREDNISolone sod succ/PF 40mg inj. IV SCH (19:38)
[2019-05-03] MEDS: aspirin 81mg tablet.DR PO SCH (19:39)
[2019-05-03] MEDS: acetaminophen 325mg tablet PO PRN (19:39)
[2019-05-03] MEDS: losartan 25mg tablet PO SCH (21:21)
[2019-05-03] MEDS: tamsulosin 0.4mg capsule PO SCH (21:21)
[2019-05-03] MEDS: atorvastatin 10mg tablet PO SCH (21:23)
[2019-05-04] VITALS (8 sets, daily range): BP systolic 97–137; BP diastolic 61–85
[2019-05-04] MEDS: ipratropium/albuterol 3ml nebule NEB SCH ×6 (04:08→23:32)
--- NOTE | 2019-05-04 06:20 | NUR ---
Problems reprioritized. Patient report given, questions answered & plan of care reviewed with RICK Garg.
--- NOTE | 2019-05-04 06:21 | NUR ---
Patient in room PCU 3012. I have received report from, Danuta CABRERA and had the opportunity to ask questions and assume patient care.
--- NOTE | 2019-05-04 06:34 | NUR ---
Patient in room PCU 3012. I have received report from Danuta CABRERA and had the opportunity to ask questions and assume patient care. Patient asleep in bed. 3 L nasal cannula. Resting comfortably.
[2019-05-04] MEDS: docusate sod 100mg capsule PO SCH ×2 (08:00→20:00)
[2019-05-04 08:41] LABS: ABG BASE EXCESS 14.4 mmol/L (-2.0-3.0); ABG HCO3 41.2 mmol/L (22.0-26.0); ABG PCO2 (T) 60.2 mmHg (35.0-45.0); ABG PH (T) 7.453 (7.350-7.450); ABG PO2 (T) 64.9 mmHg (83-108); ALLEN'S TEST POSITIVE; FCOHb 0.2 % (0.5-1.5); FLOW 3 L/min; FMetHb 0.3 % (0.3-1.12); FO2Hb 92.5 % (94-100); TOTAL HEMOGLOBIN 13.6 G/dl (14.0-17.9)
[2019-05-04] MEDS: calcium carbonate 500mg tablet PO SCH ×2 (08:54→19:33)
[2019-05-04] MEDS: pantoprazole 40mg Tablet.DR PO SCH (08:54)
[2019-05-04] MEDS: furosemide 20MG tablet PO SCH (08:55)
[2019-05-04] MEDS: clopidogrel 75mg tablet PO SCH (08:55)
[2019-05-04] MEDS: carVEDilol 3.125mg tablet PO SCH ×2 (08:56→20:00)
[2019-05-04] MEDS: lisinopril 2.5mg tablet PO SCH (08:56)
[2019-05-04] MEDS: CefTRIAXone 2gm/D5W 50ml 50 ML IV SCH (08:57)
[2019-05-04] MEDS: enoxaparin 40mg/0.4ml syringe SUBCUT SCH (08:57)
[2019-05-04] MEDS: methylPREDNISolone sod succ/PF 40mg inj. IV SCH (08:58)
[2019-05-04] MEDS: lactose-reduced food (Ensure High Protein) 237ml bottle PO SCH ×6 (08:59→16:00)
[2019-05-04] MEDS: K and/or MAG REPLACEMENT MC SCH ×2 (08:59→20:00)
--- NOTE | 2019-05-04 09:55 | NUR ---
Dr. Snowden, order PT evaluation, CBC, BMP, DC'd heparin SQ patient receiving Lovenox SQ.
[2019-05-04] MEDS ORDERED: predniSONE 20 mg tablet PO ONE (14:05)
--- NOTE | 2019-05-04 18:08 | NUR ---
Problems reprioritized. Patient report given, questions answered & plan of care reviewed with Danuta CABRERA, patient stable at transfer of care.
--- NOTE | 2019-05-04 18:08 | NUR ---
[place] documentation: I have reviewed and agree with all interventions, assessments performed and documented by RICK Hu. [place] Medication Administration: For this medication-pass time frame, all medication were reviewed, dispensed, administered and documented per hospital policy by RICK Hu.
--- NOTE | 2019-05-04 18:08 | NUR ---
Problems reprioritized. Patient report given, questions answered & plan of care reviewed with Danuta CABRERA. Patient stable at transfer of care.
--- NOTE | 2019-05-04 18:10 | NUR ---
Patient in room PCU 3012. I have received report from RICK Garg and had the opportunity to ask questions and assume patient care.
[2019-05-04] MEDS ORDERED: ipratropium/albuterol 3ml nebule NEB SCH (19:00)
[2019-05-04] MEDS: lactobacillus rhamnosus 10,000 MMU CELLS/CAPSULE PO SCH (19:33)
[2019-05-04] MEDS: atorvastatin 10mg tablet PO SCH (20:28)
[2019-05-04] MEDS: aspirin 81mg tablet.DR PO SCH (20:28)
[2019-05-04] MEDS: tamsulosin 0.4mg capsule PO SCH (20:28)
[2019-05-05] VITALS (10 sets, daily range): BP systolic 86–137; BP diastolic 55–96
[2019-05-05] MEDS: ipratropium/albuterol 3ml nebule NEB SCH ×6 (02:49→23:57)
--- NOTE | 2019-05-05 03:11 | NUR ---
Attempted Metaneb with pt. He is unable to keep a good seal around the mouth piece and is unable to generate pressures high enough to be effective. Pt placed back on bipap to help with lung expansion, Epap increased slightly, svn finished inline with bipap. Will send a note to about working with pt with flutter valve and ezpap vs metaneb. Addendum: 05/05/19 at 2 by Alaina Valle RT Amended: Links added.
--- NOTE | 2019-05-05 06:06 | NUR ---
Problems reprioritized. Patient report given, questions answered & plan of care reviewed with RICK Garg.
--- NOTE | 2019-05-05 06:36 | NUR ---
Patient in room PCU 3012. I have received report from Danuta CABRERA and had the opportunity to ask questions and assume patient care. Patient asleep in bed on bi-pap FiO2 30%.
[2019-05-05 07:58] LABS: BASOPHILS % (AUTO) 0.2 % (0-1); EOSINOPHILS % (AUTO) 0.2 % (0-6); HEMATOCRIT 39.7 % (42.0-52.0); HEMOGLOBIN 13.1 g/dl (14.0-17.9); LYMPHOCYTES # (AUTO) 0.5 X10'3 (1.1-4.8); LYMPHOCYTES % (AUTO) 6.3 % (21-51); MEAN CORPUSCULAR HEMOGLOBIN 27.7 PG (27.0-31.0); MEAN PLATELET VOLUME 8.1 FL (7.4-10.4); MONOCYTES % (AUTO) 12.4 % (2-12); NEUTROPHILS # (AUTO) 6.3 X10'3 (1.8-7.7); NEUTROPHILS % (AUTO) 80.9 % (42-75); PLATELET COUNT 154 X10'3 (140-440); RED BLOOD COUNT 4.72 X10'6 (4.70-6.10); RED CELL DISTRIBUTION WIDTH 15.6 % (11.5-14.5); WHITE BLOOD COUNT 7.8 X10'3 (4.5-11.0)
[2019-05-05] MEDS: K and/or MAG REPLACEMENT MC SCH ×2 (08:00→20:00)
[2019-05-05] MEDS: docusate sod 100mg capsule PO SCH ×2 (08:00→20:35)
[2019-05-05 08:08] LABS: ALBUMIN 2.8 G/DL (3.4-5.0); ANION GAP -3 (8-16); BLOOD UREA NITROGEN 31 MG/DL (7-18); BUN/CREATININE RATIO 41.3 (5.4-32.0); CALCIUM 9.5 MG/DL (8.5-10.1); CHLORIDE 103 MMOL/L (99-107); CREATININE 0.75 MG/DL (0.60-1.10); GLUCOSE 121 MG/DL (70-104); SODIUM 142 MMOL/L (135-145); eGFR > 90 ML/MIN
[2019-05-05 08:11] LABS: TOTAL CARBON DIOXIDE 41.9 MMOL/L (24-32)
--- NOTE | 2019-05-05 08:21 | NUR ---
Dr. Snowden notified RE: Vinny Car, [id number]. Critical Lab CO2 41.9. Fritz CABRERA [id number]
[2019-05-05] MEDS: CefTRIAXone 2gm/D5W 50ml 50 ML IV SCH (09:07)
[2019-05-05] MEDS: enoxaparin 40mg/0.4ml syringe SUBCUT SCH (09:07)
[2019-05-05] MEDS: calcium carbonate 500mg tablet PO SCH ×2 (09:08→20:36)
[2019-05-05] MEDS: lactobacillus rhamnosus 10,000 MMU CELLS/CAPSULE PO SCH ×2 (09:08→20:35)
[2019-05-05] MEDS: pantoprazole 40mg Tablet.DR PO SCH (09:08)
[2019-05-05] MEDS: predniSONE 20 mg tablet PO SCH (09:09)
[2019-05-05] MEDS: clopidogrel 75mg tablet PO SCH (09:09)
[2019-05-05 10:25] LABS: ABG BASE EXCESS 14.1 mmol/L (-2.0-3.0); ABG HCO3 40.9 mmol/L (22.0-26.0); ABG OXYGEN SATURATION 95.7 % (95-98); ABG PCO2 (T) 60.8 mmHg (35.0-45.0); ABG PH (T) 7.446 (7.350-7.450); ABG PO2 (T) 77.2 mmHg (83-108); ALLEN'S TEST POSITIVE; FCOHb 0.4 % (0.5-1.5); FLOW 4 L/min; FMetHb 0.3 % (0.3-1.12); TOTAL HEMOGLOBIN 13.2 G/dl (14.0-17.9)
[2019-05-05] MEDS: carVEDilol 3.125mg tablet PO SCH ×2 (11:16→20:35)
[2019-05-05] MEDS: lisinopril 2.5mg tablet PO SCH (11:17)
[2019-05-05] MEDS: furosemide 20MG tablet PO SCH (11:18)
[2019-05-05] MEDS: lactose-reduced food (Ensure High Protein) 237ml bottle PO SCH (18:00)
--- NOTE | 2019-05-05 18:31 | NUR ---
Problems reprioritized. Patient report given, questions answered & plan of care reviewed with Allyson CABRERA. Patient stable at transfer of care.
--- NOTE | 2019-05-05 18:42 | NUR ---
Patient in room PCU 3012. I have received report from Britany CABRERA and had the opportunity to ask questions and assume patient care.
[2019-05-05] MEDS: atorvastatin 10mg tablet PO SCH (20:35)
[2019-05-05] MEDS: tamsulosin 0.4mg capsule PO SCH (20:35)
[2019-05-05] MEDS: aspirin 81mg tablet.DR PO SCH (20:35)
[2019-05-06 02:00] VITALS: BP 100/58
[2019-05-06] MEDS: ipratropium/albuterol 3ml nebule NEB SCH ×5 (03:45→19:20)
[2019-05-06 06:00] VITALS: BP 120/88
--- NOTE | 2019-05-06 06:19 | NUR ---
Patient in room PCU 3012. I have received report from RICK Anthony and had the opportunity to ask questions and assume patient care.
--- NOTE | 2019-05-06 06:30 | NUR ---
Problems reprioritized. Patient report given, questions answered & plan of care reviewed with Becky CABRERA.
[2019-05-06] MEDS: K and/or MAG REPLACEMENT MC SCH (08:00)
[2019-05-06] MEDS: CefTRIAXone 2gm/D5W 50ml 50 ML IV SCH (08:21)
[2019-05-06] MEDS: docusate sod 100mg capsule PO SCH (08:22)
[2019-05-06] MEDS: lactobacillus rhamnosus 10,000 MMU CELLS/CAPSULE PO SCH (08:22)
[2019-05-06] MEDS: clopidogrel 75mg tablet PO SCH (08:22)
[2019-05-06] MEDS: enoxaparin 40mg/0.4ml syringe SUBCUT SCH (08:22)
[2019-05-06] MEDS: furosemide 20MG tablet PO SCH (08:22)
[2019-05-06] MEDS: calcium carbonate 500mg tablet PO SCH (08:23)
[2019-05-06] MEDS: predniSONE 20 mg tablet PO SCH (08:23)
[2019-05-06] MEDS: lisinopril 2.5mg tablet PO SCH (08:23)
[2019-05-06] MEDS: carVEDilol 3.125mg tablet PO SCH (08:23)
[2019-05-06] MEDS: pantoprazole 40mg Tablet.DR PO SCH (08:23)
[2019-05-06] MEDS: lactose-reduced food (Ensure High Protein) 237ml bottle PO SCH ×2 (08:24→13:00)
[2019-05-06 11:00] VITALS: BP 91/51
[2019-05-06 15:00] VITALS: BP 94/52
[2019-05-06] MEDS: ergocalciferol (Vitamin D) 50,000 unit capsule PO SCH (17:50)
--- NOTE | 2019-05-06 19:00 | NUR ---
Problems reprioritized. Patient report given, questions answered & plan of care reviewed with RICK Damon.
--- NOTE | 2019-05-06 19:14 | NUR ---
Sent to RT The message has been submitted for processing. Back to message FORM
== END 2019-05-06 20:15 | disposition short-term general hospital (02) | DRG 280 ==
LOC: ER 16:32 → ED HOLD 19:40 → PCU 3S 20:45
PROVIDERS: ADMIT Internal Medicine; ATTEND Family Medicine
PROC: 5A09357 Assistance with Respiratory Ventilation, Less than 24 Consecutive Hours, Continuous Positive Airway Pressure (ICD-10-PCS; principal; 2019-04-27)
PROC: 5A09357 Assistance with Respiratory Ventilation, Less than 24 Consecutive Hours, Continuous Positive Airway Pressure (ICD-10-PCS; 2019-04-28)
PROC: 5A09357 Assistance with Respiratory Ventilation, Less than 24 Consecutive Hours, Continuous Positive Airway Pressure (ICD-10-PCS; 2019-04-29)
PROC: 5A09357 Assistance with Respiratory Ventilation, Less than 24 Consecutive Hours, Continuous Positive Airway Pressure (ICD-10-PCS; 2019-04-30)
PROC: 5A09357 Assistance with Respiratory Ventilation, Less than 24 Consecutive Hours, Continuous Positive Airway Pressure (ICD-10-PCS; 2019-05-01)
PROC: 5A09357 Assistance with Respiratory Ventilation, Less than 24 Consecutive Hours, Continuous Positive Airway Pressure (ICD-10-PCS; 2019-05-02)
PROC: 5A09357 Assistance with Respiratory Ventilation, Less than 24 Consecutive Hours, Continuous Positive Airway Pressure (ICD-10-PCS; 2019-05-03)
PROC: 5A09357 Assistance with Respiratory Ventilation, Less than 24 Consecutive Hours, Continuous Positive Airway Pressure (ICD-10-PCS; 2019-05-04)
PROC: 5A09357 Assistance with Respiratory Ventilation, Less than 24 Consecutive Hours, Continuous Positive Airway Pressure (ICD-10-PCS; 2019-05-05)
PROC: 5A09357 Assistance with Respiratory Ventilation, Less than 24 Consecutive Hours, Continuous Positive Airway Pressure (ICD-10-PCS; 2019-05-06)
DX: I50.23 Acute on chronic systolic (congestive) heart failure (principal); J09.X1 Influenza due to identified novel influenza A virus with pneumonia; I21.A1 Myocardial infarction type 2; J18.9 Pneumonia, unspecified organism; J96.20 Acute and chronic respiratory failure, unspecified whether with hypoxia or hypercapnia; J44.1 Chronic obstructive pulmonary disease with (acute) exacerbation; E87.4 Mixed disorder of acid-base balance; J44.0 Chronic obstructive pulmonary disease with (acute) lower respiratory infection; E78.5 Hyperlipidemia, unspecified; I08.0 Rheumatic disorders of both mitral and aortic valves; I25.5 Ischemic cardiomyopathy; M19.90 Unspecified osteoarthritis, unspecified site; I27.81 Cor pulmonale (chronic); J98.4 Other disorders of lung; R33.9 Retention of urine, unspecified; D64.9 Anemia, unspecified; Z79.899 Other long term (current) drug therapy; Z86.73 Personal history of transient ischemic attack (TIA), and cerebral infarction without residual deficits; Z99.81 Dependence on supplemental oxygen
CPT/HCPCS: 36415; 36600; 71045; 80048; 80053; 80202; 82803; 82948; 83735; 83880; 84153; 84484; 85018; 85025; 85379; 85610; 85730; 87070; 87077; 87081; 87185; 92508; 92616; 93005; 93306; 94640; 94660; 94668; 94760; 97162; 97530; 99291; G0378; J0456; J0696; J1644; J1650; J1940; J2405; J2543; J2920; J2930; J3370; J7512